=== PATIENT | male | born 1960 | race Caucasian/White ===

== ENCOUNTER 2017-11-08 09:52 | Outpatient (RCR) | payer MEDICARE, MEDICAID, SELFPAY | END 2017-11-08 15:06 | disposition home or self-care (01) | LOC: PT 09:52 | PROVIDERS: Family Provider Nurse Practitioner Family; PCP Nurse Practitioner Family; Visit Provider Nurse Practitioner Family | DX: M25.542 Pain in joints of left hand (principal) | CPT/HCPCS: 97110 ==

== ENCOUNTER → 2019-02-22 14:03 | Outpatient (CLI) | payer MEDICARE, MEDICAID, SELFPAY ==
[2019-02-22 14:43] LABS: Basophils # 0.1 K/mm3 (0-0.2); Basophils % 0.6 % (0.1-2.0); Eosinophils # 0.3 K/mm3 (0.0-0.4); Eosinophils % 4.1 % (0.1-12.0); Hematocrit 45.3 % (42.0-52.0); Hemoglobin 14.7 g/dL (14.1-18.0); Lymphocytes # 2.5 K/mm3 (0.7-4.5); Lymphocytes % 30.2 % (10-50); Mean Corpuscular HGB Conc 32.4 g/dL (31.8-35.4); Mean Corpuscular Hemoglobin 29.6 pg (27.0-31.2); Mean Corpuscular Volume 91.3 fl (80-94); Mean Platelet Volume 8.1 fl (7.4-10.4); Monocytes # 0.6 K/mm3 (0.1-1.0); Monocytes % 7.2 % (1.7-9.3); Neutrophils # 4.8 K/mm3 (1.8-7.8); Neutrophils % 57.8 % (37.0-80.0); Platelet Count 266 K/mm3 (142-424); Red Blood Count 4.97 M/mm3 (4.60-6.20); Red Cell Distribution Width 13.5 % (11.5-17.5); White Blood Count 8.3 K/mm3 (4.8-10.8)
[2019-02-22 15:53] LABS: Alanine Aminotransferase 22 U/L (12-78); Albumin Level 4.2 gm/dL (3.4-5.0); Albumin/Globulin Ratio 1.5 (1.1-1.8); Alkaline Phosphatase 89 U/L (46-116); Anion Gap 14.2 mEq/L (5-15); Aspartate Amino Transferase 17 U/L (15-37); Bilirubin,Total 0.4 mg/dL (0.2-1.0); Blood Urea Nitrogen 13 mg/dL (7-18); Calcium 9.1 mg/dL (8.5-10.1); Carbon Dioxide 27 mmol/L (21.0-32.0); Chloride 104 mmol/L (98-107); Chol/HDL Ratio 3.8 (1-3.5); Cholesterol 169 mg/dL (140-200); Creatinine,Serum 0.93 mg/dL (0.70-1.30); Estimated Glomerular Filt Rate 83 ml/min (>60); GFR (African American) 101 ML/MIN (>60); Globulin 2.8 gm/dl (1.3-3.2); Glucose 90 mg/dL (74-106); HDL Cholesterol 45 mg/dL (27-67); LDL Cholesterol 108 mg/dL (0-130); Potassium 4.2 mmoL/L (3.5-5.1); Prostate Specific Ag Screen 2.7 ng/mL (0.0-4.0); Sodium 141 mmol/L (136-145); Thyroid Stimulating Hormone 1.99 uIU/ml (0.358-3.740); Triglycerides 79 mg/dL (30-200); VLDL Cholesterol 16 mg/dL (0-40)
[2019-02-24 08:19] LABS: Hep A Ab, IgM Negative (Negative); Hepatitis B Core Antibody IgM Negative (Negative); Hepatitis B Surface Antigen Negative (Negative)
[2019-02-24 20:47] LABS: Hepatitis C Antibody <0.1 s/co ratio (0.0-0.9); Vitamin D 25 Hydroxy 29.7 ng/mL (30.0-100.0)
== END ==
PROVIDERS: Visit Provider Nurse Practitioner Family
DX: R53.83 Other fatigue (principal); E78.5 Hyperlipidemia, unspecified; F41.9 Anxiety disorder, unspecified; I10 Essential (primary) hypertension; Z11.59 Encounter for screening for other viral diseases; N40.0 Benign prostatic hyperplasia without lower urinary tract symptoms; Z12.5 Encounter for screening for malignant neoplasm of prostate; E55.9 Vitamin D deficiency, unspecified
CPT/HCPCS: 80053; 80061; 80074; 82652; 84436; 84443; 85025; G0103

== ENCOUNTER → 2021-06-25 11:27 | Outpatient (CLI) | payer MEDICARE, MEDICAID, SELFPAY ==
--- NOTE | 2021-06-25 11:38 | XR_ITS ---
PROCEDURE: XR HIP LT 2-3V W/PELVIS CLINICAL INDICATION: hip pain COMPARISON: CR PELAP PELVIS AP ONLY from 04/27/2017 FINDINGS: No fracture or dislocation is evident. No significant degenerative change. No lytic or blastic change. Unremarkable soft tissues. IMPRESSION: No acute findings. Dictated by: Dr. Casey Eisenberg MD 06/25/2021 12:34 Dr. Casey Eisenberg MD in [place] 06/25/2021 12:34
--- NOTE | 2021-06-25 11:39 | XR_ITS ---
PROCEDURE: XR HIP RT 2-3V W/PELVIS CLINICAL INDICATION: HIP PAIN COMPARISON: CR PELAP PELVIS AP ONLY from 04/27/2017 FINDINGS: No fracture or dislocation is evident. No significant degenerative change. No lytic or blastic change. There is a small bone fragment adjacent to the roof of the acetabulum with smooth borders and this possibly represents an old avulsion osteophytic spur. There is no soft tissue calcifications. The SI joints are normal. IMPRESSION: No acute findings. Dictated by: Dr. Casey Eisenberg MD 06/25/2021 12:35 Dr. Casey Eisenberg MD in [place] 06/25/2021 12:35
[2021-06-25 11:43] LABS: Basophils # 0.1 K/mm3 (0-0.2); Basophils % 0.9 % (0.1-2.0); Eosinophils # 0.5 K/mm3 (0.0-0.4); Eosinophils % 4.3 % (0.1-12.0); Hematocrit 49.1 % (42.0-52.0); Lymphocytes # 3.3 K/mm3 (0.7-4.5); Lymphocytes % 26.8 % (10-50); Mean Corpuscular HGB Conc 32.7 g/dL (31.8-35.4); Mean Corpuscular Hemoglobin 31.6 pg (27.0-31.2); Mean Corpuscular Volume 96.8 fl (80-94); Mean Platelet Volume 8.2 fl (7.4-10.4); Monocytes # 0.9 K/mm3 (0.1-1.0); Monocytes % 7.1 % (1.7-9.3); Neutrophils # 7.5 K/mm3 (1.8-7.8); Neutrophils % 60.9 % (37.0-80.0); Platelet Count 356 K/mm3 (142-424); Red Blood Count 5.07 M/mm3 (4.60-6.20); Red Cell Distribution Width 14.4 % (11.5-17.5); White Blood Count 12.3 K/mm3 (4.8-10.8)
[2021-06-25 12:04] LABS: Chloride 104 mmol/L (98-107); Potassium 4.3 mmoL/L (3.5-5.1); Sodium 137 mmol/L (136-145)
[2021-06-25 12:07] LABS: Alanine Aminotransferase 14 U/L (12-78); Albumin Level 4.3 g/dl (3.5-5.0); Albumin/Globulin Ratio 1.5 (1.1-1.8); Alkaline Phosphatase 131 U/L (38-126); Anion Gap 11.3 mEq/L (5-15); Aspartate Amino Transferase 22 U/L (17-59); Bilirubin,Total 0.4 mg/dl (0.2-1.3); Blood Urea Nitrogen 13 mg/dl (9-20); Carbon Dioxide 26 mmol/L (22.0-30.0); Cholesterol 201 mg/dl (140-200); Estimated Glomerular Filt Rate 76 ml/min (>60); GFR (African American) 92 ML/MIN (>60); Globulin 2.9 g/dL (1.3-3.2); Total Protein,Serum 7.2 g/dl (6.3-8.2); Triglycerides 180 mg/dl (30-150); VLDL Cholesterol 36 mg/dL (0-40)
[2021-06-25 12:08] LABS: Calcium 9.7 mg/dl (8.4-10.2); Chol/HDL Ratio 4.3 (1-3.5); Glucose 108 mg/dl (74-100); HDL Cholesterol 47 mg/dl (40-60)
[2021-06-25 12:18] LABS: Direct LDL Cholesterol 126.49 mg/dL (100-129)
[2021-06-25 12:38] LABS: Thyroid Stimulating Hormone 0.79 uIU/mL (0.465-4.68)
== END ==
PROVIDERS: Visit Provider Nurse Practitioner Family
DX: I10 Essential (primary) hypertension (principal); F41.9 Anxiety disorder, unspecified; F41.1 Generalized anxiety disorder; M25.552 Pain in left hip; M25.551 Pain in right hip; Z72.0 Tobacco use
CPT/HCPCS: 36415; 73502; 80053; 80061; 84436; 84443; 85025

== ENCOUNTER 2024-11-08 17:04 | Emergency (ER) | payer MEDICARE, MEDICAID, SELFPAY ==
[2024-11-08] VITALS (11 sets, daily range): BP systolic 127–183; BP diastolic 87–110; PULSE 85–104; RESP 16–22; TEMP 36.8; O2SAT 96–99; BMI 28.7
--- NOTE | 2024-11-08 17:16 | CT_ITS ---
PROCEDURE INFORMATION: Exam: CT Abdomen And Pelvis Without Contrast Exam date and time: 11/08/2024 6:53 PM Age: 64 years old Clinical indication: Other: Gen abd pain, no bm x1wk, unable to urinate TECHNIQUE: Imaging protocol: Computed tomography of the abdomen and pelvis without contrast. Radiation optimization: All CT scans at this facility use at least one of these dose optimization techniques: automated exposure control; mA and/or kV adjustment per patient size (includes targeted exams where dose is matched to clinical indication); or iterative reconstruction. COMPARISON: CR XR HIP LT 2-3V W/PELVIS 06/25/2021 11:41 AM FINDINGS: Liver: Normal. No mass. Gallbladder and biliary ducts: Normal. No calcified stones. No ductal dilation. Pancreas: Normal. No ductal dilation. Spleen: Normal. No splenomegaly. Adrenal glands: Normal. No mass. Kidneys and ureters: 3 mm stone in the distal left ureter (series 3, image 122) with mild fullness of the left ureter. Mild right hydroureteronephrosis without evidence of ureteral stone the right. Moderate bilateral nephrolithiasis and perinephric fatty stranding. Stomach and bowel: Unremarkable. No obstruction. No mucosal thickening. Appendix: The appendix is visualized and appears normal. Intraperitoneal space: Unremarkable. No free air. No significant fluid collection. Vasculature: Moderate atherosclerotic calcification throughout the aorta and iliac arteries. No aneurysm. Lymph nodes: Unremarkable. No enlarged lymph nodes. Urinary bladder: Ryan catheter is present in the urinary bladder. Reproductive: Unremarkable as visualized. Bones/joints: Severe degenerative disc changes in the lower lumbar spine. Facet arthropathy in the lower lumbar spine with grade 1 anterolisthesis of L4. No vertebral body compression. No acute fracture. Soft tissues: Unremarkable. IMPRESSION: 1. Stone in the distal left ureter measuring 3 mm in diameter and bilateral nephrolithiasis noted. No significant hydronephrosis on the left. Mild hydronephrosis noted on the right. 2. Bilateral perinephric fatty stranding. This can be seen as a chronic benign finding, although urinary tract infection/pyelonephritis not excluded.
--- NOTE | 2024-11-08 17:46 | HMH.EDGENADL ---
Discharge Plan Disposition Patient Disposition: Xfer Short-Term Hosp Condition: Fair Chief Complaint: Urogenital-Male Prescriptions Prescriptions: No Action No Known Home Medications Referrals Follow up/Referrals: Provider,Referral, [Primary Care Provider] - See instructions Clinical Impressions Clinical Impression: Acute renal failure, Postobstructive diuresis, Obstructive uropathy, Calculus of left ureter, Acute UTI Stand Alone Forms Stand Alone Forms: Transfer Record - ED Instructions Patient Instructions: DI for Urinary Tract Infection (UTI), DI for Urinary Tract Infection in Children Print Language Print Language: Turkmen Discharge ED Provider: Ros Encarnacion General Adult HPI General Chief complaint: Urogenital-Male Stated complaint: un able to urinate Time Seen by Provider: 11/08/24 17:09 History of Present Illness HPI narrative: This patient is a 64-year-old male with a history of prior inguinal hernia repair, hypertension, hyperlipidemia presenting to the emergency department for evaluation with concern for generalized abdominal pain, distention, inability to have a bowel movement, and inability urinate. He states his last bowel movement was a week ago and he is not been able to urinate in a few days. He states that he is having some clear urine come out of his rectum, but he is not able to actually pee. He also notes generalized abdominal pain and distention. His only abdominal surgery in the past is an inguinal hernia repair. He does note a remote history of back surgery for chronic back pain. No recent falls or injuries, no back pain at this time. No lower extremity symptoms, numbness, tingling, saddle anesthesia. He has nausea but no vomiting. He arrives by EMS noted he was stable en route Related Data Home Medications ?Medication ?Instructions ?Recorded ?Confirmed No Known Home Medications 11/08/24 11/08/24 Allergies Allergy/AdvReac Type Severity Reaction Status Date / Time No Known Allergies Allergy Verified 11/08/24 18:06 [facility] Disclaimer: The information contained in this section may have been updated after the patient was seen, as this information can be updated by other users. Medical History Anxiety Hypertension Social History Smoking Status: Current every day smoker alcohol intake: never substance use type: marijuana current occupational status: disabled Travel in the last 8 weeks: None number of children: 0 Have you lived/traveled outside [place] in past 30 days?: No Contact w/someone who lives/traveled outside US past 30 days?: No Exposure to someone with infectious disease in past 14 days?: No Do you have a fever (greater than 100.4 F or 38 C)?: No Have you tested positive for COVID-19: No Exposed to someone with COVID-19 in past 14 days?: No Do you have a sore throat?: No Do you have a cough?: No Do you have any weakness?: No Do you have any diarrhea?: No Are you experiencing any unusual bleeding?: No Do you have any muscle aches/pain?: No Do you have any abdominal pain?: No Are you experiencing loss of taste or smell?: No Other Medical History Have you received the Pneumonia Vaccine: No ROS Obtained: Yes All systems reviewed & no additional complaints except as documented Physical Exam General General appearance: alert and in no apparent distress Head Head exam: atraumatic and normocephalic Eye Eye exam: Present normal appearance, PERRL and EOMI ENT ENT exam: Present normal exam, normal oropharynx, mucous membranes moist and normal external ear exam Neck Neck exam: Present normal inspection, full ROM and trachea midline; Absent tenderness Chest Chest inspection: Present normal inspection and symmetric chest wall rise; Absent tenderness Respiratory Respiratory exam: Present normal lung sounds bilaterally; Absent respiratory distress, wheezes, stridor or accessory muscle use Cardiovascular Cardiovascular exam: Present regular rate and normal rhythm Abdominal Exam Abdominal exam: Present distention, tenderness and guarding Extremities Exam Extremities exam: Present normal inspection, full ROM and normal capillary refill; Absent tenderness or edema Back Exam Back exam: Present normal inspection and full ROM; Absent tenderness Neurological Exam Neurological exam: Present alert, oriented X3, CN II-XII intact and normal gait; Absent motor sensory deficit Psychiatric Psychiatric exam: Present normal affect and normal mood Skin Skin exam: Present warm and dry Medical Decision Making Medical Records Medical records reviewed: Yes I reviewed the patient's medical records. Screening: Per USPSTF and CDC recommendations, given the prevalence of disease in our region, it is our hospital?s policy to screen for HIV and viral Hepatitis for all patients aged 18 and over and those with ongoing risk factors. Rommel Inquiry Pt receiving controlled substance: No Vital Signs: 11/08/24 17:13 11/08/24 17:30 11/08/24 17:41 Temperature 98.3 F Temperature Source Oral Pulse Rate 104 H 95 H Pulse Rate [Left] 85 Respiratory Rate 16 Blood Pressure 145/88 H 150/96 H Blood Pressure [Right Arm] 145/88 H Blood Pressure Mean 114 Blood Pressure Mean [Right Arm] 107 Blood Pressure Source [Right Arm] Automatic Cuff Blood Pressure Position [Right Arm] Sitting 02 Sat by Pulse Oximetry 98 98 98 Oxygen Delivery Method Room Air Room Air Room Air 11/08/24 19:35 11/08/24 20:50 11/08/24 21:01 Temperature Temperature Source Pulse Rate 100 H 101 H 102 H Pulse Rate [Left] Respiratory Rate 19 20 Blood Pressure 152/110 H 149/97 H 166/101 H Blood Pressure [Right Arm] Blood Pressure Mean Blood Pressure Mean [Right Arm] Blood Pressure Source [Right Arm] Blood Pressure Position [Right Arm] 02 Sat by Pulse Oximetry 99 97 98 Oxygen Delivery Method Room Air Room Air 11/08/24 21:30 11/08/24 22:00 11/08/24 22:30 Temperature Temperature Source Pulse Rate 95 H 101 H Pulse Rate [Left] Respiratory Rate 19 20 22 Blood Pressure 167/100 H 133/87 183/107 H Blood Pressure [Right Arm] Blood Pressure Mean Blood Pressure Mean [Right Arm] Blood Pressure Source [Right Arm] Blood Pressure Position [Right Arm] 02 Sat by Pulse Oximetry 99 98 98 Oxygen Delivery Method Room Air Room Air Room Air 11/08/24 23:01 11/08/24 23:30 Temperature Temperature Source Pulse Rate 104 H 103 H Pulse Rate [Left] Respiratory Rate 19 19 Blood Pressure 130/87 127/90 Blood Pressure [Right Arm] Blood Pressure Mean Blood Pressure Mean [Right Arm] Blood Pressure Source [Right Arm] Blood Pressure Position [Right Arm] 02 Sat by Pulse Oximetry 96 96 Oxygen Delivery Method Room Air Room Air Lab Data Lab results reviewed: Yes I reviewed the patient's lab results. Lab Results 11/08/24 17:26: Urine Color Yellow, Urine Appearance Clear, Urine pH 6.0, Ur Specific [place] 1.020, Urine Protein Negative, Urine Glucose (UA) Negative, Urine Ketones Negative, Urine Blood 1+ A, Urine Nitrate Negative, Urine Bilirubin Negative, Urine Urobilinogen 0.2, Ur Leukocyte Esterase Trace, Urine RBC 50-100, Urine WBC 20-50, Ur Squamous Epith Cells 5-10, Urine Bacteria 3+ 11/08/24 17:56: WBC 15.6 H, RBC 4.87, Hgb 15.2, Hct 43.1, MCV 88.5, MCH 31.2, MCHC 35.3, RDW 13.2, Plt Count 148, MPV 10.0, Neut % (Auto) 81.8 H, Lymph % (Auto) 8.7 L, Geary % (Auto) 7.7, Eos % (Auto) 0.5, Baso % (Auto) 0.3, Neut # (Auto) 12.7 H, Lymph # (Auto) 1.4, Geary # (Auto) 1.2 H, Eos # (Auto) 0.1, Baso # (Auto) 0.1, Total Counted 100, Neutrophils % (Manual) 84 H, Lymphocytes % (Manual) 8 L, Monocytes % (Manual) 8, Platelet Estimate Normal, RBC Morphology Normal, Sodium 134 L 11/08/24 17:56: Sodium 135 L, Potassium 5.2 H 11/08/24 17:56: Potassium 5.3 H, Chloride 97 L 11/08/24 17:56: Chloride 97 L, Carbon Dioxide 14 L 11/08/24 17:56: Carbon Dioxide 12 L, Anion Gap 28.2 H 11/08/24 17:56: Anion Gap 31.3 H, BUN 174 H* 11/08/24 17:56: BUN 175 H*, Creatinine 14.50 H 11/08/24 17:56: Creatinine 14.30 H, Estimated Creat Clear 7 11/08/24 17:56: Estimated Creat Clear 7, Estimated GFR 3 L* 11/08/24 17:56: Estimated GFR 3 L*, Est GFR ( Amer) 4 L* 11/08/24 17:56: Est GFR ( Amer) 4 L*, Glucose 123 H 11/08/24 17:56: Glucose 124 H, Calcium 9.1 11/08/24 17:56: Calcium 9.1, Total Bilirubin 0.8, AST 21, ALT 16, Alkaline Phosphatase 122, Total Protein 7.3, Albumin 4.1, Globulin 3.2, Albumin/Globulin Ratio 1.3, Lipase 82 11/08/24 18:09: Lactate 0.8 11/08/24 20:06: Sodium 136, Potassium 5.0, Chloride 102, Carbon Dioxide 15 L, Anion Gap 24.0 H, BUN 156 H*, Creatinine 11.10 H D, Estimated Creat Clear 9, Estimated GFR 5 L*, Est GFR ( Amer) 6 L* D, Glucose 106 H, Calcium 9.1 11/08/24 17:56 11/08/24 20:06 Orders (Tests/Meds): ED MEDICATIONS Generic Name Dose Route Start Last Admin Trade Name Freq PRN Reason Stop Dose Admin Lactated Ringer's 1,000 mls @ 150 mls/hr 11/08/24 21:00 11/08/24 22:15 Lactated Ringer's 1000 Ml Bag IV 12/08/24 20:59 150 mls/hr .[id number] COLEMAN Administration Discontinued Medications Generic Name Dose Route Start Last Admin Trade Name Freq PRN Reason Stop Dose Admin Lactated Ringer's 1,000 mls @ 999 mls/hr 11/08/24 18:38 11/08/24 19:38 Lactated Ringer's 1000 Ml Bag IV 11/08/24 19:38 999 mls/hr .Q1H1M ONE Administration Ceftriaxone Sodium 2 gm/ 100 mls @ 200 mls/hr 11/08/24 19:58 11/08/24 20:41 Sodium Chloride IV 11/08/24 20:27 200 mls/hr ONCE ONE Administration Morphine Sulfate 4 mg 11/08/24 17:16 11/08/24 18:19 Morphine 4mg/Ml Syringe IV 11/08/24 17:17 Not Given ONCE ONE Ondansetron HCl 4 mg 11/08/24 17:16 11/08/24 18:19 Ondansetron 4mg/2ml Vial IV 11/08/24 17:17 Not Given ONCE ONE ORDERS Category Date Time Status CT abdomen pelvis wo con Stat Cat Scan 11/08/24 17:16 Completed BMP [Basic Metabolic Panel] Stat Lab 11/08/24 17:56 Completed BMP [Basic Metabolic Panel] Timed Lab 11/08/24 20:06 Completed Complete Blood Count Auto Diff Stat Lab 11/08/24 17:56 Completed Comprehensive Metabolic Panel Stat Lab 11/08/24 17:56 Completed Lactic Acid Stat Lab 11/08/24 18:09 Completed Lipase Stat Lab 11/08/24 17:56 Completed UA [Urinalysis and Microscopic] Stat Lab 11/08/24 17:26 Completed Blood Culture Stat Micro 11/08/24 20:40 Received Urine Culture Stat Micro 11/08/24 17:26 Received Medical Decision Narrative: In summary, this patient is a 64-year-old male presenting to the Emergency Department for evaluation of inability to have a bowel movement in 1 week, inability to urinate for a few days. Differential diagnoses considered include but are not limited to fecal impaction, constipation, bowel obstruction, BPH, malignancy, spine injury. Ruling out the most morbid conditions drove assessment. It should be noted patient's history includes chronic back pain, hypertension, hyperlipidemia which may or may not be at goal therapy. This complicates all aspects of care by increasing patient's risk for morbidity. I reviewed patient's past medical records and noted previous evaluations for chronic back pain. On exam, the patient is lying in bed in no acute distress. Has distended abdomen with generalized tenderness and guarding, no rebound or rigidity. He has significant bladder distention. He is neurovascularly intact in his lower extremities, doubt spinal pathology as a cause of his inability to urinate or have a bowel movement. I favor an obstructive process within the abdomen. Bladder scan demonstrated greater than 1700 cc of urine in the bladder, seaman catheter placed with 2100 cc out immediately. He then had 1800 out over the following 2 hours, 1000 mL out over the subsequent 2. Concern for postobstructive diuresis. workup included CBC, CMP, lipase, lactic acid, urinalysis, CT abdomen and pelvis with IV contrast. Patient given IV morphine and Zofran for symptomatic improvement. I independently interpreted CT scan prior to the radiologist read and noted left ureteral stone. Please see their read for final interpretation. Labs were obtained that demonstrated leukocytosis, acute renal failure with a creatinine of 14.5, GFR is 3. BUN is significantly elevated. He has an anion gap acidosis. He had mild hyperkalemia initially, which had improved on repeat metabolic panel obtained after a liter bolus of IV fluids and Seaman catheter placement. Urine is concerning for infection, and he also has hematuria. He has 20-50 white blood cells and 3+ bacteria. He was given IV Rocephin in addition to 1 L bolus of IV fluids. He was also started on maintenance fluids at 150 cc/h. Ultimately, I feel the patient would benefit from transfer to higher level of care for further evaluation and management of acute renal failure in the setting of obstructive uropathy. He does have a ureteral stone, however I feel this likely is not the cause of his acute renal failure given his obstructive uropathy. I had a direct discussion with Dr. Mathew with urology [place] who advised that he recommended speaking with nephrology and the hospitalist. I then discussed the case with Dr. Acosta with nephrology and Dayana DURBIN for hospitalist who stated the patient is to return for transfer. Patient then refused transfer to [place], stating that he would only go to [place]. I then discussed the case with at his request, however Dr. Santacruz in the transfer center advised they cannot override divert for this. I then discussed the case with nephrology at [facility], who advised they would be happy to consult on the patient there. Patient was accepted to [facility] under name of hospitalist Dr. Mayo for higher level of care with nephrology and urology. He was in the emergency department for an extended period of time waiting for transport. EMS transport was eventually arranged, and he was transferred in stable condition for further evaluation and management. Critical Care Critical Care Time Critical Care Time: Yes Attestation: On 11/08/24, the high probability of a clinically significant, sudden or life threatening deterioration of the following system(s) required my full and direct attention, intervention and personal management. The time I documented below is in addition to time spent performing reported procedures but includes the following listed in this critical care notation. Total Time Total Critical Care Time: 40
[2024-11-08 18:06] LABS: Basophils # 0.1 K/mm3 (0-0.2); Basophils % 0.3 % (0.1-2.0); Eosinophils # 0.1 K/mm3 (0.0-0.4); Eosinophils % 0.5 % (0.1-12.0); Hematocrit 43.1 % (42.0-52.0); Hemoglobin 15.2 g/dL (14.1-18.0); Lymphocytes # 1.4 K/mm3 (0.7-4.5); Lymphocytes % 8.7 % (10-50); Mean Corpuscular HGB Conc 35.3 g/dL (31.8-35.4); Mean Corpuscular Hemoglobin 31.2 pg (27.0-31.2); Mean Corpuscular Volume 88.5 fl (80-94); Monocytes # 1.2 K/mm3 (0.1-1.0); Monocytes % 7.7 % (1.7-9.3); Neutrophils # 12.7 K/mm3 (1.8-7.8); Neutrophils % 81.8 % (37.0-80.0); Platelet Count 148 K/mm3 (142-424); Red Blood Count 4.87 M/mm3 (4.60-6.20); Red Cell Distribution Width 13.2 % (11.5-17.5); White Blood Count 15.6 K/mm3 (4.8-10.8)
[2024-11-08 18:08] LABS: MANUAL DIFFERENTIAL MANUAL DIFFERENTIAL (MANUAL DIFF)
[2024-11-08 18:08] LABS: Microscopic, Urine URINE MICROSCOPIC (MICROSCOPIC)
[2024-11-08 18:09] LABS: Appearance,Urine CLEAR (Clear); Bilirubin,Urine Negative (Negative); Blood, Urine 1+ (Negative); Color,Urine YELLOW (Yellow); Glucose,Urine (UA) Negative (Negative); Ketones,Urine Negative (Negative); Leukocyte Esterase,Urine TRACE (Negative); Nitrate,Urine Negative (Negative); Protein,Urine Negative (Negative); Urobilinogen,Urine 0.2 EU/dl (0.2)
[2024-11-08 18:10] LABS: Albumin Level 4.1 g/dl (3.5-5.0); Chloride 97 mmol/L (98-107); Potassium 5.2 mmoL/L (3.5-5.1); Sodium 134 mmol/L (136-145)
[2024-11-08 18:13] LABS: Alanine Aminotransferase 16 U/L (12-78); Albumin/Globulin Ratio 1.3 (1.1-1.8); Alkaline Phosphatase 122 U/L (38-126); Anion Gap 28.2 mEq/L (5-15); Aspartate Amino Transferase 21 U/L (17-59); Bilirubin,Total 0.8 mg/dl (0.2-1.3); Calcium 9.1 mg/dl (8.4-10.2); Carbon Dioxide 14 mmol/L (22.0-30.0); Globulin 3.2 g/dL (1.3-3.2); Glucose 123 mg/dl (74-100); Lipase 82 U/L (23-300); Total Protein,Serum 7.3 g/dl (6.3-8.2)
[2024-11-08 18:15] LABS: Lymphocytes % 8 % (10-50); Monocytes % 8 % (2-9); Neutrophils % 84 % (42-76); Total Cells Counted 100
[2024-11-08 18:16] LABS: Platelet Estimate Normal; RBC Morphology Normal
[2024-11-08 18:21] LABS: Bacteria,Urine 3+ /lpf; RBC,Urine 50-100 #/hpf (0-3); WBC,Urine 20-50 #/hpf (0-3)
[2024-11-08 18:24] LABS: Lactic Acid 0.8 mmol/L (0.7-2.1)
[2024-11-08 18:33] LABS: Blood Urea Nitrogen 174 mg/dl (9-20); Creatinine Clearance Estimated 7 mL/min (50-200); Estimated Glomerular Filt Rate 3 ml/min (>60); GFR (African American) 4 ML/MIN (>60)
[2024-11-08] MEDS: LACTATED RINGERS 1000ML 1,000 ML 999 ML IV (19:38)
--- NOTE | 2024-11-08 19:44 | PC.NURSE ---
rounded on pt at this time. pt asking for something to eat. informed pt of NPO status until CT scan is complete. call light in reach
--- NOTE | 2024-11-08 19:47 | PC.NURSE ---
1800ml bloody urine drained from seaman bag
[2024-11-08 19:50] LABS: Chloride 97 mmol/L (98-107)
[2024-11-08 19:51] LABS: Potassium 5.3 mmoL/L (3.5-5.1); Sodium 135 mmol/L (136-145)
[2024-11-08 19:54] LABS: Anion Gap 31.3 mEq/L (5-15); Calcium 9.1 mg/dl (8.4-10.2); Carbon Dioxide 12 mmol/L (22.0-30.0); Glucose 124 mg/dl (74-100)
[2024-11-08 20:05] LABS: Blood Urea Nitrogen 175 mg/dl (9-20); Creatinine Clearance Estimated 7 mL/min (50-200); Estimated Glomerular Filt Rate 3 ml/min (>60); GFR (African American) 4 ML/MIN (>60)
--- NOTE | 2024-11-08 20:05 | PC.NURSE ---
Called [facility] transfer center @ 20:05 to transfer pt to [place]
--- NOTE | 2024-11-08 20:08 | PC.NURSE ---
MD Encarnacion aware of critical lab results. Sherron PEREZ at bedside to draw blood cultures at this time
--- NOTE | 2024-11-08 20:12 | PC.NURSE ---
Called [facility] for a transfer to @ 20:12
[2024-11-08 20:23] LABS: Chloride 102 mmol/L (98-107)
[2024-11-08 20:24] LABS: Sodium 136 mmol/L (136-145)
[2024-11-08 20:26] LABS: Creatinine Clearance Estimated 9 mL/min (50-200); Estimated Glomerular Filt Rate 5 ml/min (>60); GFR (African American) 6 ML/MIN (>60)
[2024-11-08 20:27] LABS: Calcium 9.1 mg/dl (8.4-10.2); Carbon Dioxide 15 mmol/L (22.0-30.0); Glucose 106 mg/dl (74-100)
--- NOTE | 2024-11-08 20:38 | PC.NURSE ---
[facility] called for transfer. Waiting mems integration engineer back from Dr. Rishi Mayo (Nephrology).
[2024-11-08 20:41] LABS: Blood Urea Nitrogen 156 mg/dl (9-20)
[2024-11-08] MEDS: CEFTRIAXONE SODIUM 2 GM in 0.9 % SODIUM CHLORIDE 100 ML IV (20:41)
--- NOTE | 2024-11-08 20:50 | PC.NURSE ---
20G USG Iv placed to FLY.
--- NOTE | 2024-11-08 21:47 | PC.NURSE ---
REPORT CALLED TO [facility] 3A [id number], NURSE MONICA PATIENT IS AO X 4 GCS 15, PATIENT VITALS STABLE, PATIENT STATES NOTHING NEEDS TO BE ADDRESSED AT THIS TIME.
[2024-11-08] MEDS: LACTATED RINGERS 1000ML 1,000 ML 150 ML IV (22:15)
[2024-11-09] VITALS: BP 143/92; PULSE 102; RESP 17; O2SAT 95
[2024-11-09 00:43] VITALS: BP 150/101; PULSE 100; RESP 22; TEMP 37; O2SAT 100
== END 2024-11-09 00:47 | disposition short-term general hospital (02) ==
PROVIDERS: Emergency Provider Emergency Medicine
DX: N39.0 Urinary tract infection, site not specified (principal); N20.1 Calculus of ureter; N13.9 Obstructive and reflux uropathy, unspecified; R35.89 Other polyuria; N17.9 Acute kidney failure, unspecified; R10.84 Generalized abdominal pain; R33.9 Retention of urine, unspecified; R14.0 Abdominal distension (gaseous); R15.0 Incomplete defecation; Z72.0 Tobacco use
CPT/HCPCS: 51702; 74176; 80048; 80053; 81001; 83605; 83690; 85007; 85025; 85027; 87040; 87086; 96361; 96365; 96374; 96375; 99291; J0696; J2270; J2405; J7120

== ENCOUNTER 2024-11-12 01:04 | Emergency (ER) | payer MEDICARE, MEDICAID, SELFPAY ==
[2024-11-12 01:01] VITALS: BP 112/89; PULSE 106; RESP 20; TEMP 37; O2SAT 99; BMI 29.5
--- NOTE | 2024-11-12 01:06 | CT_ITS ---
PROCEDURE INFORMATION: Exam: CT Abdomen And Pelvis Without Contrast Exam date and time: 11/12/2024 1:27 AM Age: 64 years old Clinical indication: Abdominal pain; Generalized; Additional info: Low abd pain obstructive uropathy TECHNIQUE: Imaging protocol: Computed tomography of the abdomen and pelvis without contrast. Radiation optimization: All CT scans at this facility use at least one of these dose optimization techniques: automated exposure control; mA and/or kV adjustment per patient size (includes targeted exams where dose is matched to clinical indication); or iterative reconstruction. COMPARISON: CT ABDOMEN PELVIS WO CON 11/08/2024 6:53 PM FINDINGS: Tubes, catheters and devices: There is a Ryan catheter in satisfactory position. Liver: Normal. No mass. Gallbladder and biliary ducts: Normal. No calcified stones. No ductal dilation. Pancreas: Normal. No ductal dilation. Spleen: Normal. No splenomegaly. Adrenal glands: Normal. No mass. Kidneys and ureters: 1 cm calculi at the right ureteropelvic junction with severe hydronephrosis and perinephric inflammation. Bilateral renal calculi. Stomach and bowel: Unremarkable. No obstruction. No mucosal thickening. Appendix: No evidence of appendicitis. Intraperitoneal space: Unremarkable. No free air. No significant fluid collection. Vasculature: There is extensive calcification of the aorta and branch vessels. There is no aneurysm. Lymph nodes: Unremarkable. No enlarged lymph nodes. Urinary bladder: The urinary bladder is poorly evaluated due to underdistention. Reproductive: Unremarkable as visualized. Bones/joints: Unremarkable. No acute fracture. Soft tissues: Unremarkable. IMPRESSION: 1 cm calculi at the right ureteropelvic junction with severe hydronephrosis and perinephric inflammation. Bilateral nephrolithiasis.
--- NOTE | 2024-11-12 01:10 | ECG_ITS ---
APPROVED REPORT Exam: Resting ECG HR:101 bpm ECG Measurements Heart Rate 101 AXES IA 148 P 48 QRSd 97 QRS -55 QT 326 T 63 QTc 384 Conclusion SINUS TACHYCARDIA LEFT ANTERIOR FASCICULAR BLOCK [QRS AXIS <= -45, QR IN I, RS IN II] ABNORMAL ECG No STEMI Electronically signed by : JESUS MARI, 11/12/2024 06:31:05
--- NOTE | 2024-11-12 01:19 | PC.NURSE ---
2200 ml clear, dark yellow urine emptied from seaman bag.
--- NOTE | 2024-11-12 01:23 | ED_ITS ---
Discharge Plan Disposition Patient Disposition: Xfer Short-Term Hosp Prescriptions Prescriptions: No Action No Known Home Medications Referrals Follow up/Referrals: Provider,Referral, [Primary Care Provider] - See instructions Clinical Impressions Clinical Impression: Postobstructive diuresis, UTI (urinary tract infection), Sepsis, Ureterolithiasis, Hydronephrosis Stand Alone Forms Stand Alone Forms: Transfer Record - ED Instructions Patient Instructions: DI for Urinary Tract Infection (UTI), DI for Urinary Tract Infection in Children Print Language Print Language: Chinese Discharge ED Provider: Reinaldo Lauren General Adult HPI General Chief complaint: Urogenital-Male Stated complaint: trouble urinating Time Seen by Provider: 11/12/24 01:06 Mode of Arrival: EMS Source of Information: Patient Limitations: No Limitations Description of Symptoms (Recalled from ER Triage Doc. by RN): Pt to ED with c/o not being able to void. Pt states he has been dribbling Pt was seen here in the ED with the same complaint, and was sent to [facility] for acute renal failure. Pt was DC from that facility Friday 11/10. Bladder scan shows >1032ml upon arrival . History of Present Illness HPI narrative: 64-year-old male who was recently discharged from [facility] after being transferred there from this facility for urinary retention and acute renal failure presents to the ER with abdominal pain and inability to urinate. Patient was seen for the same complaint on 11/08/2024 and transferred to [facility] where he reportedly was given some IV medications and antibiotics and left to sit in the bed . According to the patient, they reportedly did nothing about his kidneys other than give him some fluids. He reports at 11 AM on 11/10 they removed his catheter and discharged him 1 to 2 hours later. He states he has not been able to void normally since that time and has just been dribbling small amounts of urine. He came to the ER due to significant lower abdominal pain. He does not want to go back to [facility]. No other complaints at this time. He does report he is taking his tamsulosin and oral antibiotic as prescribed. Related Data Home Medications ?Medication ?Instructions ?Recorded ?Confirmed No Known Home Medications 11/08/24 11/08/24 Allergies Allergy/AdvReac Type Severity Reaction Status Date / Time No Known Allergies Allergy Verified 11/08/24 18:06 [facility] Disclaimer: The information contained in this section may have been updated after the patient was seen, as this information can be updated by other users. Medical History Anxiety Hypertension Social History Smoking Status: Former smoker alcohol intake: never substance use type: marijuana current occupational status: disabled Travel in the last 8 weeks: None number of children: 0 Have you lived/traveled outside [place] in past 30 days?: No Contact w/someone who lives/traveled outside US past 30 days?: No Exposure to someone with infectious disease in past 14 days?: No Do you have a fever (greater than 100.4 F or 38 C)?: No Have you tested positive for COVID-19: No Exposed to someone with COVID-19 in past 14 days?: No Do you have a sore throat?: No Do you have a cough?: No Do you have any weakness?: No Do you have any diarrhea?: No Are you experiencing any unusual bleeding?: No Do you have any muscle aches/pain?: No Do you have any abdominal pain?: No Are you experiencing loss of taste or smell?: No Other Medical History Have you received the Pneumonia Vaccine: No ROS Obtained: Yes Systems reviewed as appropriate & no additional complaints except as documented per HPI Physical Exam General General appearance: alert and in no apparent distress Head Head exam: atraumatic and normocephalic Eye Eye exam: Present PERRL and EOMI ENT ENT exam: Present mucous membranes moist Neck Neck exam: Present normal inspection and full ROM Chest Chest inspection: Present symmetric chest wall rise Respiratory Respiratory exam: Present normal lung sounds bilaterally; Absent respiratory distress, wheezes or stridor Cardiovascular Cardiovascular exam: Present regular rate and normal rhythm Abdominal Exam Abdominal exam: Present soft, distention (Especially of the low abdomen) and tenderness (Low abdominal tenderness); Absent guarding, rebound or rigidity Extremities Exam Extremities exam: Present full ROM; Absent edema Neurological Exam Neurological exam: Present alert and oriented X3; Absent motor sensory deficit Psychiatric Psychiatric exam: Present normal affect and normal mood Skin Skin exam: Present warm and dry Medical Decision Making Medical Records Medical records reviewed: Yes I reviewed the patient's medical records. Screening: Per USPSTF and CDC recommendations, given the prevalence of disease in our region, it is our hospital?s policy to screen for HIV and viral Hepatitis for all patients aged 18 and over and those with ongoing risk factors. MR Comment: Review of most recent ER visit from 11/08/2024 demonstrates patient was evaluated for abdominal pain, inability to urinate, found to have a likely UTI, obstructive uropathy, acute renal failure, and postobstructive diuresis while in the ER. Eventually he was transferred to [facility] for further management. [place] Inquiry Pt receiving controlled substance: No Vital Signs: 11/12/24 01:01 11/12/24 01:47 Temperature 98.6 F Temperature Source Oral Pulse Rate 106 H Pulse Rate [Apical] 106 H Respiratory Rate 20 Blood Pressure 114/95 H Blood Pressure [Right Arm] 112/89 Blood Pressure Mean [Right Arm] 96 Blood Pressure Source [Right Arm] Automatic Cuff Blood Pressure Position [Right Arm] Supine 02 Sat by Pulse Oximetry 99 98 Oxygen Delivery Method Nasal Cannula Oxygen Flow Rate (LPM) 2 Lab Data Lab Results 11/12/24 01:40: Urine Color Yellow, Urine Appearance Slightly cloudy, Urine pH 5.5, Ur Specific [place] 1.015, Urine Protein Negative, Urine Glucose (UA) Negative, Urine Ketones Negative, Urine Blood 3+ A, Urine Nitrate Negative, Urine Bilirubin Negative, Urine Urobilinogen 0.2, Ur Leukocyte Esterase 1+ A, Urine RBC 50-100, Urine WBC 5-10, Ur Squamous Epith Cells 3-5, Urine Bacteria 1+ 11/12/24 01:46: WBC 25.7 H*, RBC 4.17 L, Hgb 13.1 L, Hct 38.1 L, MCV 91.4, MCH 31.4 H, MCHC 34.4, RDW 13.0, Plt Count 180, MPV 9.4, Neut % (Auto) 87.1 H, Lymph % (Auto) 4.1 L, [place] % (Auto) 6.8, Eos % (Auto) 0.4, Baso % (Auto) 0.3, Neut # (Auto) 22.4 H, Lymph # (Auto) 1.1, [place] # (Auto) 1.8 H, Eos # (Auto) 0.1, Baso # (Auto) 0.1, Total Counted 100, Neutrophils % (Manual) 88 H, Lymphocytes % (Manual) 3 L, Monocytes % (Manual) 9, Platelet Estimate Normal, RBC Morphology Normal, PT 10.7, INR 0.97, Sodium 131 L, Potassium 3.9, Chloride 102, Carbon Dioxide 21 L, Anion Gap 11.9, BUN 40 H, Creatinine 2.60 H, Estimated Creat Clear 36, Estimated GFR 25 L, Est GFR ( Amer) 30 L, Glucose 126 H, Calcium 9.0, Total Bilirubin 0.7, AST 52, ALT 36, Alkaline Phosphatase 97, Total Protein 6.7, Albumin 3.5, Globulin 3.2, Albumin/Globulin Ratio 1.1 11/12/24 01:46 11/12/24 01:46 Orders (Tests/Meds): ED MEDICATIONS Generic Name Dose Route Start Last Admin Trade Name Freq PRN Reason Stop Dose Admin Ceftriaxone Sodium 1 gm/ 50 mls @ 100 mls/hr 11/12/24 02:15 11/12/24 02:29 Sodium Chloride IV 11/22/24 02:14 100 mls/hr Q24H COLEMAN Administration Discontinued Medications Generic Name Dose Route Start Last Admin Trade Name Freq PRN Reason Stop Dose Admin Cocaine HCl 1 ml 11/12/24 01:06 11/12/24 01:24 Cocaine 4% Topical Soln 4ml Bottle TP 11/12/24 01:07 Not Given ONCE ONE Epinephrine HCl 1 mg 11/12/24 01:06 11/12/24 01:24 Epinephrine 1 Mg/Ml Ampul TP 11/12/24 01:07 Not Given ONCE ONE Sodium Chloride 2,120 mls @ 1,060 mls/hr 11/12/24 02:26 11/12/24 02:28 Sod Chlor 0.9% 1000ml Bag 30 ml/kg infuse over 2 hr (2120 ml) 11/12/24 04:25 1,060 mls/hr IV Administration .Q2H ONE Sodium Chloride 1,000 mls @ 1,060 mls/hr 11/12/24 02:31 11/12/24 03:39 Sod Chlor 0.9% 1000ml Bag IV 11/12/24 04:26 Not Given .Q57M COLEMAN Lidocaine HCl 1 ml 11/12/24 01:06 11/12/24 01:26 Lidocaine 2% Urojet 10ml TP 11/12/24 01:07 1 ml ONCE ONE Administration ORDERS Category Date Time Status CT abdomen pelvis wo con Stat Cat Scan 11/12/24 01:06 Completed CBC w/Auto Diff [Complete Blood Count Auto Diff] Stat Lab 11/12/24 01:46 Completed CMP [Comprehensive Metabolic Panel] Stat Lab 11/12/24 01:46 Completed PT INR [Prothrombin Time INR] Stat Lab 11/12/24 01:46 Completed Urinalysis and Microscopic Stat Lab 11/12/24 01:40 Completed Urine Culture Stat Micro 11/12/24 01:40 Received ECG Request Stat Y 11/12/24 01:06 Ordered Medical Decision Narrative: In summary, this 64-year-old male with comorbidities described in the HPI which are unlikely to be at goal therapy given his presenting symptoms presents to the emergency department today with low abdominal pain, inability to void. On initial evaluation patient is hemodynamically stable, afebrile, lungs clear bilaterally, abdominal exam notable for lower abdominal distention, tenderness, no rebound or guarding, no peritonitic findings. Differential diagnosis includes but is not limited to urinary retention, obstructive uropathy, nephropathy, patient recently had ureteral calculus, possible this is still present, considered kidney dysfunction, electrolyte abnormality including hyperkalemia, among others. Based on these concerns, I ordered serum labs, CT imaging, bladder scan was performed demonstrating well over 1 L in the bladder on arrival. Ryan catheter was placed and urine studies were ordered, ECG was ordered to assess for possible changes given patient's recent acute renal failure and the possibility of hyperkalemia. ECG personally interpreted demonstrates sinus tachycardia, rate 101, normal CT and QTc, no STEMI. No hyperacute T waves. Uro-Jet was used for placement of Ryan catheter. Patient initially had 2200mL out. In the subsequent 2 hours, 1100mL UOP. Evidence of postobstructive diuresis. Labs personally reviewed demonstrate significant elevation in leukocytosis worse from prior, patient has persistent findings of urinary tract infection. Kidney function is significantly improved creatinine now 2.6 down from 11 at the time of his transfer a few days ago. With his leukocytosis, borderline tachycardia, he is receiving IV fluid bolus as well as Rocephin. CT imaging personally interpreted demonstrate Ryan catheter in the bladder, patient has new right ureterolithiasis with approximately 9-10 mm stone. Patient also has right hydronephrosis. See radiology read for final interpretation. Based on my personal interpretation of CT imaging, we reached out to facilities for higher level of care. Patient initially did not want to go to [facility] due to negative experience recently, however [facility] did not have bed availability. I discussed this case with [facility] including the nurse practitioner hospitalist on behalf of Dr. Feliciano. Patient graciously accepted for admission and patient agreeable to be transferred to [facility] for management of infected kidney stone. Unfortunately due to ambulance availability at this time patient will remain in our ER receiving fluids and antibiotics until transportation becomes available. [id number] transportation became available. Patient reassessed and remains stable with improved hemodynamics, resting comfortably. Appropriate for transport. Patient transferred in stable condition. Critical Care Critical Care Time Critical Care Time: Yes Attestation: On 11/12/24, the high probability of a clinically significant, sudden or life threatening deterioration of the following system(s) (renal, infectious, hemodynamic) required my full and direct attention, intervention and personal management. The time I documented below is in addition to time spent performing reported procedures but includes the following listed in this critical care notation. Total Time Total Critical Care Time: 35
[2024-11-12] MEDS: LIDOCAINE 2% UROJET 10ML TP (01:26)
--- NOTE | 2024-11-12 01:27 | PC.NURSE ---
pt to CT at this time
[2024-11-12 01:41] LABS: Microscopic, Urine URINE MICROSCOPIC (MICROSCOPIC)
[2024-11-12 01:43] LABS: Bilirubin,Urine Negative (Negative); Blood, Urine 3+ (Negative); Color,Urine YELLOW (Yellow); Glucose,Urine (UA) Negative (Negative); Ketones,Urine Negative (Negative); Leukocyte Esterase,Urine 1+ (Negative); Nitrate,Urine Negative (Negative); PH,Urine 5.5 (5.0-8.5); Protein,Urine Negative (Negative); Specific Gravity, Urine 1.015 (1.005-1.030); Urobilinogen,Urine 0.2 EU/dl (0.2)
[2024-11-12 01:46] LABS: Appearance,Urine Slightly Cloudy (Clear)
[2024-11-12 01:47] VITALS: BP 114/95; PULSE 106; O2SAT 98
[2024-11-12 01:54] LABS: Basophils # 0.1 K/mm3 (0-0.2); Basophils % 0.3 % (0.1-2.0); Eosinophils # 0.1 K/mm3 (0.0-0.4); Eosinophils % 0.4 % (0.1-12.0); Hematocrit 38.1 % (42.0-52.0); Hemoglobin 13.1 g/dL (14.1-18.0); Lymphocytes # 1.1 K/mm3 (0.7-4.5); Lymphocytes % 4.1 % (10-50); Mean Corpuscular HGB Conc 34.4 g/dL (31.8-35.4); Mean Corpuscular Hemoglobin 31.4 pg (27.0-31.2); Mean Corpuscular Volume 91.4 fl (80-94); Mean Platelet Volume 9.4 fl (7.4-10.4); Monocytes # 1.8 K/mm3 (0.1-1.0); Monocytes % 6.8 % (1.7-9.3); Neutrophils # 22.4 K/mm3 (1.8-7.8); Neutrophils % 87.1 % (37.0-80.0); Platelet Count 180 K/mm3 (142-424); Red Blood Count 4.17 M/mm3 (4.60-6.20); White Blood Count 25.7 K/mm3 (4.8-10.8)
[2024-11-12 01:57] LABS: MANUAL DIFFERENTIAL MANUAL DIFFERENTIAL (MANUAL DIFF)
[2024-11-12 01:58] LABS: Bacteria,Urine 1+ /lpf; RBC,Urine 50-100 #/hpf (0-3)
[2024-11-12 02:05] LABS: Alanine Aminotransferase 36 U/L (12-78); Albumin Level 3.5 g/dl (3.5-5.0); Albumin/Globulin Ratio 1.1 (1.1-1.8); Alkaline Phosphatase 97 U/L (38-126); Aspartate Amino Transferase 52 U/L (17-59); Bilirubin,Total 0.7 mg/dl (0.2-1.3); Blood Urea Nitrogen 40 mg/dl (9-20); Carbon Dioxide 21 mmol/L (22.0-30.0); Chloride 102 mmol/L (98-107); Creatinine Clearance Estimated 36 mL/min (50-200); Estimated Glomerular Filt Rate 25 ml/min (>60); GFR (African American) 30 ML/MIN (>60); Globulin 3.2 g/dL (1.3-3.2); Glucose 126 mg/dl (74-100); Sodium 131 mmol/L (136-145); Total Protein,Serum 6.7 g/dl (6.3-8.2)
[2024-11-12 02:08] LABS: INR 0.97 (0.9-1.1); Prothrombin Time 10.7 seconds (9.2-12.1)
[2024-11-12 02:10] LABS: Anion Gap 11.9 mEq/L (5-15); Potassium 3.9 mmoL/L (3.5-5.1)
[2024-11-12 02:20] LABS: Lymphocytes % 3 % (10-50); Monocytes % 9 % (2-9); Neutrophils % 88 % (42-76); Total Cells Counted 100
[2024-11-12 02:21] LABS: Platelet Estimate Normal; RBC Morphology Normal
--- NOTE | 2024-11-12 02:25 | PC.NURSE ---
Called [facility] for a transfer
[2024-11-12] MEDS: 0.9 % SODIUM CHLORIDE 1000ML 2,120 ML 1060 ML IV (02:28)
[2024-11-12] MEDS: CEFTRIAXONE 1 GM 1 GM in 0.9 % SODIUM CHLORIDE 50 ML IV (02:29)
--- NOTE | 2024-11-12 03:09 | PC.NURSE ---
Report called to [facility] inpatient unit 4A Pt resting comfortably in bed. Sleeping when undisturbed
--- NOTE | 2024-11-12 04:22 | PC.NURSE ---
Lauren speaking with at this time.
--- NOTE | 2024-11-12 04:36 | PC.NURSE ---
Pt sleeping when undisturbed. Aware waiting for transport. Bed in low position Call light in reach Belongingsin reach. Siderails up x2
--- NOTE | 2024-11-12 04:39 | PC.NURSE ---
rounded on pt. Pt is asleep at this time. VSS. Call light in reach
[2024-11-12 04:49] VITALS: BP 140/77; PULSE 98; RESP 19; TEMP 37; O2SAT 96
--- NOTE | 2024-11-12 04:53 | PC.NURSE ---
Update given to [facility] regarding patient ETA
--- NOTE | 2024-11-12 04:59 | PC.NURSE ---
REport given to EMS Pt transported via ambulance to [facility]
[2024-11-12 05:00] VITALS: BP 140/77; PULSE 102; RESP 20; TEMP 37.1; O2SAT 97
== END 2024-11-12 05:06 | disposition short-term general hospital (02) ==
PROVIDERS: Emergency Provider Emergency Medicine
DX: N13.30 Unspecified hydronephrosis (principal); N20.1 Calculus of ureter; A41.9 Sepsis, unspecified organism; N39.0 Urinary tract infection, site not specified; R35.89 Other polyuria; R33.9 Retention of urine, unspecified; R10.30 Lower abdominal pain, unspecified
CPT/HCPCS: 51702; 74176; 80053; 81001; 85007; 85025; 85027; 85610; 87086; 93005; 96361; 96365; 99291; J0696; J7030